=== PATIENT | female | born 1960 | race Caucasian/White ===

== ENCOUNTER 2024-10-24 08:40 | Outpatient (RCR) | payer MEDICARE | END 2024-10-26 | LOC: RESP 08:40 | DX: J44.9 Chronic obstructive pulmonary disease, unspecified (principal); J96.11 Chronic respiratory failure with hypoxia | CPT/HCPCS: 94626 ×2; 94799; G0238 ×2 ==

== ENCOUNTER 2024-12-19 09:00 | Outpatient (RCR) | payer MEDICARE | END 2024-12-26 | LOC: RESP 09:00 | DX: J44.9 Chronic obstructive pulmonary disease, unspecified (principal); J96.11 Chronic respiratory failure with hypoxia | CPT/HCPCS: 94626 ×3; G0238 ×3 ==

== ENCOUNTER 2025-03-26 10:00 | Outpatient (RCR) | payer MEDICARE | END 2025-03-28 | LOC: RESP 10:00 | DX: J44.9 Chronic obstructive pulmonary disease, unspecified (principal); J96.11 Chronic respiratory failure with hypoxia | CPT/HCPCS: 94626 ×2; G0238 ×2 ==

== ENCOUNTER 2025-04-23 10:00 | Outpatient (RCR) | payer MEDICARE | END 2025-04-28 | LOC: RESP 10:00 | DX: J44.9 Chronic obstructive pulmonary disease, unspecified (principal) | CPT/HCPCS: 94626 ×3; G0238 ×3 ==

== ENCOUNTER → 2025-05-28 | Outpatient (RCR) | payer MEDICARE | LOC: RESP 04-30 17:12 | DX: J96.11 Chronic respiratory failure with hypoxia (principal); J44.9 Chronic obstructive pulmonary disease, unspecified | CPT/HCPCS: 94626 ×4; G0238 ×4 ==